=== PATIENT | male | born 1960 | race Caucasian/White ===

== ENCOUNTER → 2017-02-02 11:06 | Outpatient (CLI) | payer MEDICARE ==
[2012-07-13 18:06] VITALS: BMI 25.6
== END | disposition home or self-care (01) ==
LOC: D.MRI 11:06
DX: M54.16 Radiculopathy, lumbar region (principal)

== ENCOUNTER 2018-02-27 15:45 | Emergency (ER) | payer MEDICARE ==
[~2018-02-27] VITALS: Ht 175.3 cm; Wt 69.1 kg
[2018-02-27 16:08] VITALS: Ht 175.3 cm; Wt 69.1 kg
[2018-02-27] MEDS ORDERED: UNKNOWN MEDS (16:10)
[2018-02-27] MEDS ORDERED: BACLOFEN20 M1 PO (17:36)
[2018-02-27] MEDS ORDERED: VOLTAREN75 MG PO (17:36)
[2018-02-27 17:42] VITALS: BP 132/88
== END 2018-02-27 17:44 | disposition home or self-care (01) ==
LOC: D.ER 15:45
DX: S49.91XA Unspecified injury of right shoulder and upper arm, initial encounter (principal); W08.XXXA Fall from other furniture, initial encounter; Y93.89 Activity, other specified; Y92.019 Unspecified place in single-family (private) house as the place of occurrence of the external cause; M25.511 Pain in right shoulder; G40.909 Epilepsy, unspecified, not intractable, without status epilepticus; H91.3 Deaf nonspeaking, not elsewhere classified; I10 Essential (primary) hypertension

== ENCOUNTER → 2019-05-02 11:01 | Outpatient (CLI) | payer MEDICARE ==
[2018-02-27 16:08] VITALS: BMI 22.5
[~2019-05-02 11:01] MED LIST: BACLOFEN20 M1 PO; UNKNOWN MEDS; VOLTAREN75 MG PO
== END | disposition home or self-care (01) ==
LOC: D.CT 11:01
PROVIDERS: ATTEND Family Medicine
DX: R22.41 Localized swelling, mass and lump, right lower limb (principal)